=== PATIENT | female | born 1955 | race Caucasian/White ===

== ENCOUNTER → 2016-08-15 | Outpatient (CLI) | payer MEDICARE ==
[~2016-08-15] MED LIST: OXYC-12 PO
--- NOTE | 2016-08-17 20:32 | Diagnostic Imaging Report ---
Bilateral screening mammogram. The current study was also evaluated with a Computer Aided Detection (CAD) system. INDICATION: Screening. No current complaints stated on the questionnaire. COMPARISON: 04/17/2006. FINDINGS: The breasts are composed of scattered fibroglandular densities. Occasional benign-appearing calcifications are seen. There is a biopsy clip in the outer aspect of the left breast. IMPRESSION: No mammographic evidence of malignancy. Annual screening mammogram is recommended. ACR BI-RADS Category 2: Benign findings. Result letter will be mailed to the patient. Note: At least 10% of breast cancer is not imaged by mammography. Dictated by: Dictated on workstation # [id number]
== END ==
LOC: RAD 14:37
PROVIDERS: ATTEND Family Medicine
DX: Z12.31 Encounter for screening mammogram for malignant neoplasm of breast (principal)
CPT/HCPCS: 77067

== ENCOUNTER → 2017-09-10 | Outpatient (CLI) | payer MEDICARE ==
--- NOTE | 2017-09-10 18:07 | Diagnostic Imaging Report ---
Digital mammogram bilateral screening with 3D tomosynthesis. This study was compared to the prior exam of 08/15/2016. At this time, there are no current complaints. The current study was also evaluated with a Computer Aided Detection (CAD) system. FINDINGS: There are scattered fibroglandular densities in both breasts which could obscure a lesion. When compared to the prior study, there has been no significant change. There is no primary or secondary sign of malignancy noted. The 3D tomographic views also fail to show any sign of malignancy. The stereotactic clip in the left breast seen previously is again evident. IMPRESSION: There is no evidence of malignancy. ACR BI-RADS Category 1: Negative. Result letter will be mailed to the patient. Note: At least 10% of breast cancer is not imaged by mammography. Dictated by: Dictated on workstation # [id number]
== END ==
LOC: RAD 08:20
PROVIDERS: ATTEND Family Medicine
DX: Z12.31 Encounter for screening mammogram for malignant neoplasm of breast (principal)
CPT/HCPCS: 77067

== ENCOUNTER 2017-12-03 14:00 | Outpatient (CLI) | payer MEDICARE ==
[~2017-12-03] VITALS: Ht 154.9 cm; Wt 79.4 kg
[2017-12-03] MEDS ORDERED: TRAM50TA2 PO (15:53)
[2017-12-03] MEDS ORDERED: LORA10TA76 PO (15:53)
[2017-12-03] MEDS ORDERED: LISI10TA2 PO (15:53)
[2017-12-03] MEDS ORDERED: MELO15TA39 PO (15:53)
[2017-12-03] MEDS ORDERED: METF500T5 PO (15:53)
[2017-12-03] MEDS ORDERED: ATOR20TA66 PO (15:53)
== END 2017-12-03 16:25 | disposition home or self-care (01) ==
LOC: PREOP 14:00
PROVIDERS: ATTEND Surgery
DX: Z01.818 Encounter for other preprocedural examination (principal)

== ENCOUNTER 2017-12-11 09:48 | Day surgery (SDC) | payer MEDICARE ==
[~2017-12-11] VITALS: Ht 154.9 cm; Wt 79.4 kg
[~2017-12-11 09:48] MED LIST changes: +ATOR20TA66 PO; +LISI10TA2 PO; +LORA10TA76 PO; +MELO15TA39 PO; +METF500T5 PO; +TRAM50TA2 PO
[2017-12-11] MEDS ORDERED: LACTATED RINGERS 1,000 ML IV STA (09:54)
[2017-12-11 09:55] VITALS: BP 132/68
[2017-12-11] MEDS ORDERED: LACTATED RINGERS 1,000 ML IV ONE (09:55)
[2017-12-11] MEDS ORDERED: PROPOFOL INJECTION 50 ML IV ONE (10:29)
[2017-12-11] MEDS ORDERED: MIDAZOLAM 2 MG/2 ML (VERSED) VIAL ONE (10:30)
--- NOTE | 2017-12-11 10:34 | Progress Note-Pre Operative ---
Pre-Operative Progress Note H&P Reviewed The H&P was reviewed, patient examined and no changes noted. Date Seen by Provider: Dec 11, 2017 Time Seen by Provider: 10:32 Date H&P Reviewed: Dec 11, 2017 Time H&P Reviewed: 10:33 Pre-Operative Diagnosis: screening colonoscopy ANDREW ARRINGTON DO Dec 11, 2017 10:34
--- NOTE | 2017-12-11 11:20 | Progress Note-Post Operative ---
Post-Operative Progess Note Surgeon (s)/Clinical Liaison (s) Surgeon ANDREW ARRINGTON DO Clinical Liaison: na Pre-Operative Diagnosis screening colonoscopy Post-Operative Diagnosis colon polyps Procedure & Operative Findings Date of Procedure 12/11/17 Procedure Performed/Findings colonoscopy with hot bx polypectomy x 3 Anesthesia Type per service rig operator Estimated Blood Loss Estimated blood loss (mL): none Specimens/Packing Specimens Removed hepatic flexure polyp and sigmoid polyp x 2 ANDREW ARRINGTON DO Dec 11, 2017 11:20
--- NOTE | 2017-12-11 11:21 | Discharge Inst-Simple/Standard ---
Discharge Inst-Standard Discharge Medications New, Converted or Re-Newed RX: RX on Chart Patient Instructions/Follow Up Plan of Care/Instructions/FU: 2 weeks [place] Activity as Tolerated: Yes Discharge Diet: Regular Diet ANDREW ARRINGTON DO Dec 11, 2017 11:21
[2017-12-11 11:45] VITALS: BP 140/75
[2017-12-11 12:15] VITALS: BP 140/75
[2017-12-11 12:20] VITALS: BP 140/75
--- NOTE | 2017-12-11 13:57 | Anesthesia-General Post-Op ---
MAC Patient Condition Mental Status/LOC: Same as Preop Cardiovascular: Satisfactory Nausea/Vomiting: Absent Respiratory: Satisfactory Pain: Controlled Complications: Absent Post Op Complications Complications None Follow Up Care/Instructions Patient Instructions None needed. Anesthesiology Discharge Order Discharge Order Patient is doing well, no complaints, stable vital signs, no apparent adverse anesthesia problems. No complications reported per nursing. SILVINA PICKETT CRNA Dec 11, 2017 13:57
--- NOTE | 2017-12-11 21:36 | OPERATIVE REPORT ---
DATE OF SERVICE: 12/11/2017 PREOPERATIVE DIAGNOSIS: Screening colonoscopy. POSTOPERATIVE DIAGNOSIS: Colon polyps. PROCEDURE: Colonoscopy with hot biopsy polypectomy x3. SURGEON: Andrew Wick DO ANESTHESIA: Per SEWING MACHINE OPERATOR ZIPPER. ESTIMATED BLOOD LOSS: None. SPECIMENS: Hepatic flexure polyp and sigmoid polyp x2. INDICATIONS: The patient is a 62-year-old female who has not had screening colonoscopy. She understands risks and benefits of procedure and wished to proceed with procedure. Consent was signed on the chart. DESCRIPTION OF PROCEDURE: The patient was taken to the endoscopy suite, placed in left lateral recumbent position. Timeout was performed. Digital rectal exam was performed. There were no palpable polyps, masses or ulcerations. The scope was inserted in the rectum, advanced all the way to the cecum with minimal difficulty. There were no polyps, masses or ulcerations in the cecum. No polyps, masses or ulcerations within the ascending colon. In the hepatic flexure, a small flat polyp was present, which hot biopsy polypectomy was performed. Scope was continued to be slowly retracted back through the transverse colon. There were no polyps, masses or ulcerations to this area along with the descending colon. Within the distal portion of the sigmoid colon, two small polyps were present, which hot biopsy polypectomy was performed. Scope was continued to be slowly retracted back into the rectum where the scope was also retroflexed noting no other pathology. Scope was returned to its normal position, slowly withdrawn until completely removed. The patient tolerated the procedure well without any complications. She was taken to the recovery room in stable condition. The patient will follow up in the office in approximately 2 weeks to discuss pathology results. We would recommend repeat colonoscopy in three years for reevaluation. Job ID: [id number] DocumentID: [id number] Dictated Date: 12/11/2017 11:24:39 Aircraft Cylinder Mechanic Date: 12/11/2017 21:35:49 Dictated By: ANDREW WICK DO
== END 2017-12-11 12:20 | disposition home or self-care (01) ==
LOC: ENDO 09:48
PROVIDERS: ATTEND Surgery
DX: Z12.11 Encounter for screening for malignant neoplasm of colon (principal); D12.3 Benign neoplasm of transverse colon; K63.5 Polyp of colon; I10 Essential (primary) hypertension; E11.9 Type 2 diabetes mellitus without complications; F17.210 Nicotine dependence, cigarettes, uncomplicated; Z79.84 Long term (current) use of oral hypoglycemic drugs

== ENCOUNTER 2021-02-08 05:43 | Outpatient (CLI) | payer MEDICARE ==
[~2021-02-08] VITALS: Ht 162.6 cm; Wt 66.7 kg
[~2021-02-08 05:43] MED LIST changes: -LISI10TA2 PO; +LISI10TA25 PO; +METF-397 PO; -METF500T5 PO; -TRAM50TA2 PO; +TRM50T PO
== END 2021-02-08 14:37 | disposition home or self-care (01) ==
LOC: PREOP 05:43
PROVIDERS: ATTEND Surgery
DX: Z01.818 Encounter for other preprocedural examination (principal)

== ENCOUNTER 2021-02-15 11:50 | Day surgery (SDC) | payer MEDICARE ==
[~2021-02-15] VITALS: Ht 162.6 cm; Wt 66.7 kg
[2021-02-15] MEDS ORDERED: LACTATED RINGERS 1,000 ML IV ONE (11:54)
[2021-02-15] MEDS ORDERED: LACTATED RINGERS 1,000 ML IV STA (12:05)
[2021-02-15 12:13] VITALS: BP 125/60
[2021-02-15] MEDS ORDERED: MULT-1136 PO (12:19)
[2021-02-15] MEDS ORDERED: ATOR10TA66 PO (12:19)
[2021-02-15] MEDS ORDERED: DICL75TA2 PO (12:19)
[2021-02-15] MEDS ORDERED: GABA300S2 PO ×2 (12:19)
--- NOTE | 2021-02-15 14:00 | Progress Note-Pre Operative ---
Pre-Operative Progress Note H&P Reviewed The H&P was reviewed, patient examined and no changes noted. Date Seen by Provider: Feb 15, 2021 Time Seen by Provider: 13:59 Date H&P Reviewed: Feb 15, 2021 Time H&P Reviewed: 13:59 Pre-Operative Diagnosis: hx polyps ANDREW ARRINGTON DO Feb 15, 2021 14:00
[2021-02-15] MEDS ORDERED: proPOfol 200 MG/20 ML (DIPRIVAN) VIAL IV ONE (15:43)
[2021-02-15 16:14] VITALS: BP 123/60
[2021-02-15 16:15] VITALS: BP 124/87
--- NOTE | 2021-02-15 16:33 | Anesthesia-General Post-Op ---
MAC Patient Condition Mental Status/LOC: Same as Preop Cardiovascular: Satisfactory Nausea/Vomiting: Absent Respiratory: Satisfactory Pain: Controlled Complications: Absent Post Op Complications Complications None Follow Up Care/Instructions Patient Instructions None needed. Anesthesiology Discharge Order Discharge Order Patient was seen after the procedure and she was doing well, no complaints, stable vital signs, no apparent adverse anesthesia problems. ELANA SEWELL DO Feb 15, 2021 16:33
[2021-02-15 16:36] VITALS: BP 124/87
--- NOTE | 2021-02-16 01:51 | OPERATIVE REPORT ---
DATE OF SERVICE: 02/15/2021 PREOPERATIVE DIAGNOSIS: History of colon polyps. POSTOPERATIVE DIAGNOSIS: Normal colon. PROCEDURE: Colonoscopy. SURGEON: Andrew Wick DO ANESTHESIA: Per MDA. ESTIMATED BLOOD LOSS: None. COMPLICATIONS: None. INDICATIONS: The patient is a 65-year-old female with history of colon polyps. She understands risks and benefits of procedure and wished to proceed. Consent was signed in the chart. DESCRIPTION OF PROCEDURE: The patient was taken to the endoscopy suite, placed in left lateral recumbent position. Timeout was performed. Digital rectal exam was performed. No palpable polyps, masses or ulcerations. Scope was inserted in the rectum and advanced all the way to cecum with minimal difficulty. Prep was adequate. Scope was slowly retracted back. There were no polyps, masses or ulcerations within the cecum, ascending, transverse, descending and sigmoid colon. Once in the rectum, scope was retroflexed noting no other pathology. Scope was returned to its normal position, slowly withdrawn until completely removed. The patient tolerated procedure well without any complications. She was taken to recovery room in stable condition. RECOMMENDATIONS: The patient will need repeat colonoscopy in 5 years. Any issues before that be seen at that time. Job ID: [id number] DocumentID: [id number] Dictated Date: 02/15/2021 16:17:23 Rotor Assembler Date: 02/16/2021 01:49:41 Dictated By: ANDREW WICK DO
== END 2021-02-15 16:40 | disposition home or self-care (01) ==
LOC: ENDO 11:50
PROVIDERS: ATTEND Surgery
DX: Z12.11 Encounter for screening for malignant neoplasm of colon (principal); E11.9 Type 2 diabetes mellitus without complications; I10 Essential (primary) hypertension; F17.210 Nicotine dependence, cigarettes, uncomplicated; Z79.1 Long term (current) use of non-steroidal anti-inflammatories (NSAID); Z79.891 Long term (current) use of opiate analgesic; Z86.010 Personal history of colon polyps; Z79.899 Other long term (current) drug therapy; Z79.84 Long term (current) use of oral hypoglycemic drugs

== ENCOUNTER → 2022-04-20 | Outpatient (CLI) | payer MEDICARE ==
[~2022-04-20] MED LIST changes: +ATOR10TA66 PO; +DICL75TA2 PO; +GABA300S2 PO; +MULT-1136 PO
--- NOTE | 2022-04-20 14:06 | Diagnostic Imaging Report ---
INDICATION: Routine screening. Comparison is made with prior mammogram 09/10/2017 and 08/15/2016. 2-D and 3-D bilateral screening mammography was performed with CAD. CAD is utilized. The current study was also evaluated with a Computer Aided Detection (CAD) system. Scattered fibroglandular densities are identified bilaterally. A biopsy marker clip left breast is again noted. There is a tiny density in the outer right breast posterior depth which appears new since prior mammogram this appears to be inferiorly located on the tomographic images. There is a density in the posterior and slightly lower right breast on the MLO view. Additional views of these areas are recommended. The left breast is unremarkable. No malignant-appearing microcalcifications are seen. There are benign calcifications. Axillae are unremarkable. IMPRESSION: BI-RADS 0 Right breast density. Additional views are recommended for further evaluation. ACR BI-RADS Category 0: Incomplete. (Needs additional imaging evaluation). Result letter will be mailed to the patient. Note: At least 10% of breast cancer is not imaged by mammography. Dictated by: Dictated on workstation # [id number]
== END ==
LOC: RAD 11:12
PROVIDERS: ATTEND Family Medicine
DX: Z12.31 Encounter for screening mammogram for malignant neoplasm of breast (principal)
CPT/HCPCS: 77063; 77067

== ENCOUNTER → 2022-05-04 | Outpatient (CLI) | payer MEDICARE ==
--- NOTE | 2022-05-04 18:08 | Diagnostic Imaging Report ---
INDICATION: Right breast density. COMPARISON: Correlation is made with diagnostic mammogram earlier the same day and screening mammogram from 04/20/2022. EXAMINATION: Sonographic interrogation of the lower outer right breast was performed. FINDINGS: No sonographic abnormality is identified. No solid or cystic mass is detected. IMPRESSION: No sonographic abnormality is identified. Density noted mammographically does appear to be fairly benign. Even so, follow-up right mammogram in six months is recommended to show continued stability. ACR BI-RADS Category 3: Probably benign findings. Result letter will be mailed to the patient. Note: At least 10% of breast cancer is not imaged by mammography. Dictated by: Dictated on workstation # [id number]
--- NOTE | 2022-05-04 18:09 | Diagnostic Imaging Report ---
INDICATION: Right breast density. Patient presents for additional views. COMPARISON: Recent screening study from 04/20/2022. EXAMINATION: Unilateral right 2D and 3D diagnostic mammography was performed with CAD. This includes spot compression CC and ML views as well as conventional 90 degrees lateral view. The current study was also evaluated with a Computer Aided Detection (CAD) system. FINDINGS: Additional views show persistent tiny nodular density in the lower outer right breast, approximately 7 to 8 cm from the nipple. No other suspicious densities are identified. No suspicious microcalcifications are seen. IMPRESSION: Persistent tiny density in lower outer right breast, 7 to 8 cm from the nipple. Further evaluation with ultrasound is recommended and will be performed today. ACR BI-RADS Category 0: Incomplete. (Needs additional imaging evaluation). Result letter will be mailed to the patient. Note: At least 10% of breast cancer is not imaged by mammography. Dictated by: Dictated on workstation # [id number]
== END ==
LOC: RAD 11:56
PROVIDERS: ATTEND Family Medicine
DX: N64.89 Other specified disorders of breast (principal)

== ENCOUNTER → 2023-01-24 | Outpatient (CLI) | payer MEDICARE ==
[~2023-01-24] MED LIST changes: -GABA300S2 PO; +GABA300S3 PO
--- NOTE | 2023-01-24 08:44 | Diagnostic Imaging Report ---
INDICATION: Six-month followup right breast density. COMPARISON: Correlation is made with the prior mammogram from 05/04/2022. TECHNIQUE: Unilateral right 2D and 3D diagnostic mammography was performed with CAD. FINDINGS: The density noted in the lower and outer aspect of the right breast at posterior depth appears stable. No new mass or malignant-appearing microcalcifications are seen. The right axilla is unremarkable. IMPRESSION: Stable right breast density. An additional 6 month followup is recommended to show continued stability. ACR BI-RADS Category 3: Probably benign findings. Result letter will be mailed to the patient. Note: At least 10% of breast cancer is not imaged by mammography. Dictated by: Dictated on workstation # [id number]
== END ==
LOC: RAD 08:17
PROVIDERS: ATTEND Family Medicine
DX: R92.2 Inconclusive mammogram (principal); M81.0 Age-related osteoporosis without current pathological fracture